=== PATIENT | male | born 1995 | race Caucasian/White ===

== ENCOUNTER 2021-05-14 23:37 | Emergency (ER) | payer OTHER ==
[~2021-05-14] VITALS: Ht 182.9 cm; Wt 104.0 kg
[2021-05-15] MEDS ORDERED: BACITRACIN ZINC OINT UDPKT TOP ONE (00:15)
[2021-05-15 03:52] VITALS: BP 126/79
== END 2021-05-15 04:53 | disposition home or self-care (01) ==
LOC: EDSEX 23:37 → ER 23:37
DX: S00.83XA Contusion of other part of head, initial encounter (principal); S00.31XA Abrasion of nose, initial encounter; S60.512A Abrasion of left hand, initial encounter; S60.511A Abrasion of right hand, initial encounter; X83.8XXA Intentional self-harm by other specified means, initial encounter; Y93.89 Activity, other specified; Y92.018 Other place in single-family (private) house as the place of occurrence of the external cause
CPT/HCPCS: 73090; 73130; 93005; 99285